=== PATIENT | male | born 1955 | race African-American/Black ===

== ENCOUNTER 2023-11-14 20:23 | Emergency (ER) | payer MEDICARE, MEDICAID ==
[~2023-11-14] VITALS: Ht 175.3 cm; Wt 82.0 kg
[2023-11-14 20:26] VITALS: O2SAT 100
[2023-11-14 21:40] LABS: BASOPHILS % 1.2 % (0.0-2.0); EOSINOPHILS % 3.2 % (0.0-5.0); HEMATOCRIT. 35.9 % (42.0-52.0); HEMOGLOBIN. 12.2 g/dL (14.0-18.0); LYMPHOCYTES % 32.6 % (20.0-50.0); MEAN CORPUSCULAR HEMOGLOBIN 33.4 pg (28.0-32.0); MEAN CORPUSCULAR HGB CONC 33.9 g/dL (31.0-37.0); MEAN CORPUSCULAR VOLUME 98.5 fL (80.0-94.0); MEAN PLATELET VOLUME 7.2 fl (7.4-10.4); MONOCYTES % 10.2 % (2.0-8.0); NEUTROPHILS % 52.8 % (40.0-76.0); PLATELET 599 x1000/uL (130-400); RED BLOOD CELL COUNT 3.65 mill/uL (4.7-6.1); RED CELL DISTRIBUTION WIDTH 13.3 % (11.6-14.6); WHITE BLOOD COUNT 6.2 x1000/uL (4.5-11.0)
[2023-11-14 21:44] LABS: CHLORIDE 105 mEq/L (98-107); POTASSIUM 4.1 mEq/L (3.5-5.1); SODIUM 139 mEq/L (136-145)
[2023-11-14 21:45] LABS: CARBON DIOXIDE 29 mEq/L (21-32)
[2023-11-14 21:50] LABS: CREATININE 1.1 mg/dL (0.6-1.3); GLUCOSE 118 mg/dL (70-105); UREA NITROGEN BLOOD 18 mg/dL (9-23)
[2023-11-14 21:52] LABS: ALANINE AMINOTRANSFERASE 13 IU/L (10-49); ALBUMIN 4.2 g/dL (3.2-4.8); ASPARTATE AMINOTRANSFERASE 12 IU/L (<34); BILIRUBIN DIRECT 0.1 mg/dL (<=3.0); BILIRUBIN TOTAL 0.3 mg/dL (0.1-1.0); PROTEIN TOTAL 6.7 g/dL (6.0-8.3)
[2023-11-14 22:35] VITALS: TEMP 98.5
[2023-11-14] MEDS: MAGNESIUM/ALUMINUM HYDROXIDE/SIMETHICONE 30ML UDC PO ONE (22:49)
[2023-11-14] MEDS: ACETAMINOPHEN 325MG TABLET PO ONE (22:50)
[2023-11-14] MEDS ORDERED: PROT40 MT (23:03)
[2023-11-14] MEDS ORDERED: ONDA4TAB50 MT (23:03)
[2023-11-14 23:16] VITALS: BP 132/75; PULSE 78; RESP 15
== END 2023-11-14 23:25 | disposition home or self-care (01) ==
LOC: ER 20:32
DX: R10.13 Epigastric pain (principal)
CPT/HCPCS: 36415; 80048; 80076; 85025; 93005; 99284